=== PATIENT | male | born 1980 | race African-American/Black ===

== ENCOUNTER 2019-11-13 15:35 | Emergency (ER) | payer MEDICAID ==
[~2019-11-13] VITALS: Ht 175.3 cm; Wt 63.5 kg
--- NOTE | 2019-11-13 15:42 | PHYS DOC ---
Past History Past Medical History: Alcoholism, Asthma, HIV Additional Past Medical Histor: Esophagitis Additional Past Surgical Histo: Esophageal repair Smoking: Cigarettes, Less than 1pk/day Alcohol Use: Rarely Drug Use: Marijuana Adult General Chief Complaint Chief Complaint: Low back pain HPI HPI Patient is a 38-year-old male presenting to the emergency department with a chief complaint of back pain. Patient states that he had a cough yesterday so he went to the bathroom and turned on the shower and hot steam to help his cough he sat down and rested for about 10 minutes when he got up he felt lightheaded and states that he fell. Patient states that his fiance saw his fall but he does not really remember what happened. Patient states that he hit the side of his head his lower back and his left hip. Pt states that he has chronic back pain which pt does not take any medication for but this feels different than his chronic back pain. Pt reports that the pain is a 10 out of 10 and goes to a 12 out of 10 when he moves. Patient has not tried anything at home for the pain. Patient denies any confusion, headache, neck pain, and trauma of any other kind. Patient denies saddle anesthesia, loss of bowel or bladder function. Review of Systems Review of Systems Constitutional: Denies fever or chills Eyes: Denies redness or eye pain HENT: Denies nasal congestion or sore throat; denies epistaxis Respiratory: Denies cough or shortness of breath Cardiovascular: Denies chest pain or palpitations GI: Denies abdominal pain, nausea, or vomiting : Denies dysuria or hematuria Musculoskeletal: Denies joint pain, reports back pain Integument: Denies rash or skin lesions Neurologic: Denies headache, focal weakness or sensory changes Complete systems were reviewed and found to be within normal limits, except as documented in this note. Physical Exam Physical Exam Constitutional: Well developed, well nourished, no acute distress, non-toxic appearance HENT: Normocephalic, atraumatic, oropharynx moist Eyes: PERRL, EOMI, conjunctiva normal, no discharge Neck: Normal range of motion, no tenderness, supple Cardiovascular: Heart rate normal, regular rhythm Lungs & Thorax: Bilateral breath sounds clear to auscultation, no wheezing Abdomen: Soft, no tenderness Skin: Warm, dry, no erythema, no rash Back: Midline tenderness of the low lumbar and sacrum on palpation, lumbar paraspinal tenderness, no stepoffs or deformities palpated Extremities: No tenderness, ROM intact, no edema Neurologic: Alert and oriented X 3, normal motor function, normal sensory function, no focal deficits noted Psychologic: Affect normal, judgement normal EKG EKG [] Radiology/Procedures Radiology/Procedures PROCEDURE: SACRUM & COCCYX 3V & LUMBAR 3V 3 view study of the lumbar spine and 3 view study of the sacrum/coccyx Clinical indications: Status post fall last night. Pain. Lumbar spine: The transverse processes are intact. No compression fracture or discitis or lytic process is seen. No anterolisthesis is evident. No significant degenerative disc space narrowing or endplate spurring is seen. Sacrum/coccyx: No acute fracture or displacement or lytic process is evident. No diastases of either SI joint or symphysis pubis is seen. IMPRESSION: No acute fracture. Electronically signed by: Tariq Edwards MD (11/13/2019 4:46 PM) [facility] Course & Med Decision Making Course & Med Decision Making Pertinent Imaging studies reviewed. (See chart for details) Patient is a 38-year-old male presents to the emergency department with a chief complaint back pain. Patient was seen and examined at bedside. Physical exam was significant for lumbar midline and paraspinal tenderness, no step-offs or deformities were palpated. Patient neurologically intact. Pain was addressed. X-rays were obtained- lumbar and sacrum/coccyx was negative for acute pathology. Patient stable for discharge with outpatient follow-up with PCP. Discussed findings and plan with patient, who acknowledge understanding and agreement. Dragon Disclaimer Dragon Disclaimer This electronic medical record was generated, in whole or in part, using a voice recognition dictation system. Departure Departure: Impression: Primary Impression: Back pain Disposition: 01 HOME, SELF-CARE Condition: STABLE Referrals: PCP,NO (PCP) Patient Instructions: Back Pain, Adult, [id number] Scripts Orphenadrine Citrate (ORPHENADRINE CITRATE) 100 Mg Tablet.er 1 TAB PO BID PRN for MUSCLE PAIN, #14 TAB 0 Refills Prov: PAYAL MOTTA DO 11/13/19 Tramadol Hcl (TRAMADOL HCL) 50 Mg Tablet 50 MG PO PRN Q6HRS PRN for PAIN, #14 TAB Prov: PAYAL MOTTA DO 11/13/19 Naproxen (NAPROXEN) 375 Mg Tablet 1 TAB PO TID PRN for PAIN, #20 TAB 0 Refills with food Prov: PAYAL MOTTA DO 11/13/19 Problem Qualifiers Primary Impression: Back pain Back pain location: low back pain Chronicity: unspecified Back pain laterality: midline Sciatica presence: unspecified whether sciatica present Qualified Codes: M54.5 - Low back pain PAYAL MOTTA DO Nov 13, 2019 15:42
[2019-11-13 15:46] VITALS: BP 109/80
[2019-11-13] MEDS ORDERED: ORPH-16 PO (16:09)
[2019-11-13] MEDS ORDERED: NAPR-695 PO (16:09)
[2019-11-13] MEDS ORDERED: TRAM50TA PO (16:09)
[2019-11-13] MEDS ORDERED: traMADol 50 MG TABLET PO ONE (16:15)
--- NOTE | 2019-11-13 16:49 | RAD ---
3 view study of the lumbar spine and 3 view study of the sacrum/coccyx Clinical indications: Status post fall last night. Pain. Lumbar spine: The transverse processes are intact. No compression fracture or discitis or lytic process is seen. No anterolisthesis is evident. No significant degenerative disc space narrowing or endplate spurring is seen. Sacrum/coccyx: No acute fracture or displacement or lytic process is evident. No diastases of either SI joint or symphysis pubis is seen. IMPRESSION: No acute fracture. Electronically signed by: Tariq Edwards MD (11/13/2019 4:46 PM) [facility]
== END 2019-11-13 16:27 | disposition home or self-care (01) ==
LOC: ER 15:35
DX: M54.5 Low back pain (principal); M53.3 Sacrococcygeal disorders, not elsewhere classified; F10.20 Alcohol dependence, uncomplicated; J45.909 Unspecified asthma, uncomplicated; F17.210 Nicotine dependence, cigarettes, uncomplicated; Y90.9 Presence of alcohol in blood, level not specified; W18.2XXA Fall in (into) shower or empty bathtub, initial encounter; Y93.E1 Activity, personal bathing and showering; Y92.091 Bathroom in other non-institutional residence as the place of occurrence of the external cause; Y99.8 Other external cause status
CPT/HCPCS: 72100; 72220; 99284